=== PATIENT | male | born 1975 | race Caucasian/White ===

== ENCOUNTER 2022-08-19 07:55 | Inpatient (IN) ==
[2022-08-19] MEDS ORDERED: Ondansetron 4 MG/2 ML VIAL IVP ONE (09:06)
[2022-08-19] MEDS ORDERED: Ampicillin/Sulbactam 3,000 MG in 0.9 % Sodium Chloride Mini Bag 100 ML IVPB ONE (09:07)
[2022-08-19] MEDS ORDERED: *HR* FentaNYL (PF) 100 MCG/2 ML VIAL IVP STA (09:07)
[2022-08-19] MEDS ORDERED: 0.9 % Sodium Chloride 1,000 ML IVC ONE (09:16)
[2022-08-19 09:46] LABS: Bilirubin,Urine Negative (Negative); Blood,Urine Negative (Negative); Clarity,Urine Clear (Clear); Color,Urine Yellow (Yellow); Glucose,Urine (UA) Normal (Normal); Ketones,Urine Negative (Negative); Leukocyte Esterase,Urine Negative (Negative); Nitrite,Urine Negative (Negative); PH,Urine 6.5 pH Units (5.0-8.0); Protein,Urine Trace mg/dL (Neg-Trace); Specific Gravity,Urine > 1.030 (1.010-1.025); Urobilinogen,Urine Normal (Normal)
[2022-08-19 09:54] LABS: Albumin 4.2 g/dL (3.5-5.7); Albumin/Globulin Ratio 1.3 (1.1-2.2); Bilirubin,Direct 0.3 mg/dL (0.0-0.2); Bilirubin,Indirect 1.1 mg/dL (0.0-1.0); Bilirubin,Total 1.4 mg/dL (0.3-1.0); Calcium 9.3 mg/dL (8.6-10.3); Globulin 3.3 g/dL (2.4-3.5); Potassium 4.2 mEq/L (3.5-5.1); Total Protein 7.5 g/dL (6.4-8.9)
[2022-08-19 10:19] LABS: Hematocrit 40.8 % (37.5-50.1); Hemoglobin 13.5 g/dL (12.9-16.9); Mean Corpuscular HGB Conc 33.1 g/dL (31.6-35.5); Mean Corpuscular Hemoglobin 29.5 pg (28.0-33.3); Mean Corpuscular Volume 89.3 fL (83.0-100.0); Mean Platelet Volume 10.5 fL (9.4-12.4); Platelet Count 302 K/mcL (140-400); Red Blood Count 4.57 M/mcL (4.19-5.50); Red Cell Distribution Width 13.4 % (11.5-14.5); White Blood Count 15.1 K/mcL (4.3-11.1)
[2022-08-19] MEDS ORDERED: Naloxone 0.4 MG/ML INJ IVP PRN ×2 (10:33→15:16)
[2022-08-19] MEDS ORDERED: Promethazine 6.25 MG in Water for inj. (sterile) 20 ML IVPB PRN (10:35)
[2022-08-19] MEDS ORDERED: Ketorolac 30 MG/ML VIAL IVP PRN ×2 (10:35→15:16)
[2022-08-19] MEDS ORDERED: *HR* HYDROmorphone PF 0.5 MG/0.5 ML SYRINGE IVP PRN (10:35)
[2022-08-19] MEDS ORDERED: Ondansetron 4 MG/2 ML VIAL IVP PRN (10:35)
[2022-08-19] MEDS ORDERED: *HR* OxyCODONE Immed Rel 5 MG TABLET PO PRN ×2 (10:35→15:16)
[2022-08-19] MEDS ORDERED: *HR* Midazolam HCl 2 MG/2 ML VIAL ONE (10:42)
[2022-08-19] MEDS ORDERED: *HR* FentaNYL (PF) 100 MCG/2 ML VIAL ONE (10:42)
[2022-08-19] MEDS ORDERED: *HR* Propofol 200 MG/20 ML VIAL IVP ONE (10:42)
[2022-08-19] MEDS ORDERED: Lidocaine -MPF 2% 2 ML VIAL ONE (10:45)
[2022-08-19] MEDS ORDERED: Lidocaine HCL 4 ML Topical Solution (Laryng-O-Jet Kit Sterile Pak) TP ONE (10:45)
[2022-08-19] MEDS ORDERED: Ringers Solution, Lactated 1,000 ML IVC SCH (10:45)
[2022-08-19] MEDS ORDERED: *HR* Succinylcholine 200 MG/10 ML VIAL IVP ONE (10:45)
[2022-08-19] MEDS ORDERED: *HR* Rocuronium Bromide 50 MG/5 ML VIAL ONE (10:45)
[2022-08-19] MEDS ORDERED: Ondansetron 4 MG/2 ML VIAL ONE (12:31)
[2022-08-19] MEDS ORDERED: Ketorolac 30 MG/ML VIAL ONE (12:33)
[2022-08-19] MEDS ORDERED: Sugammadex Sodium 200 MG/2 ML VIAL IV ONE (12:33)
[2022-08-19] MEDS ORDERED: Acetaminophen IV 1,000 MG/100 ML BAG IVPB ONE (12:39)
[2022-08-19] MEDS ORDERED: Ketamine HCL *QUVA* 50mg (1mL) SYRINGE ONE (12:49)
[2022-08-19] MEDS ORDERED: Acetaminophen IV 500 MG/50 ML BAG IVPB ONE (12:56)
[2022-08-19] MEDS ORDERED: *HR* HYDROMORPHONE 2 MG/ML VIAL ONE ×2 (13:19→14:26)
[2022-08-19] MEDS ORDERED: Ampicillin/Sulbactam 3,000 MG in 0.9 % Sodium Chloride Mini Bag 100 ML IVPB SCH (15:00)
[2022-08-19] MEDS: Ringers Solution, Lactated 1,000 ML IVC SCH (16:26)
[2022-08-19] MEDS: Pantoprazole 40 MG VIAL IVP SCH (16:27)
[2022-08-19] MEDS: Fluconazole 400 MG/200 ML 400 MG/200 ML BAG IVPB SCH (16:27)
[2022-08-19] MEDS: MetroNIDAZOLE 500 MG/100 ML 500 MG/100 ML BAG IVPB SCH ×2 (17:56→23:37)
[2022-08-19] MEDS: *HR* Heparin 5,000 UNIT/ML VIAL SQ SCH (17:59)
[2022-08-19] MEDS: Ampicillin/Sulbactam 3,000 MG in 0.9 % Sodium Chloride Mini Bag 100 ML IVPB SCH (22:08)
[2022-08-20] MEDS: Ringers Solution, Lactated 1,000 ML IVC SCH ×3 (00:53→17:26)
[2022-08-20] MEDS: Ampicillin/Sulbactam 3,000 MG in 0.9 % Sodium Chloride Mini Bag 100 ML IVPB SCH ×4 (03:15→20:41)
[2022-08-20] MEDS: *HR* Heparin 5,000 UNIT/ML VIAL SQ SCH ×2 (06:49→17:34)
[2022-08-20] MEDS: MetroNIDAZOLE 500 MG/100 ML 500 MG/100 ML BAG IVPB SCH ×3 (06:50→17:34)
[2022-08-20] MEDS: Pantoprazole 40 MG VIAL IVP SCH (07:43)
[2022-08-20] MEDS: Morphine PCA 30 MG/ 30 ML 30 ML PCA.VIAL IVC PRN ×3 (08:48→23:24)
[2022-08-20 09:20] LABS: Basophils % 0.1 %; Hematocrit 35.3 % (37.5-50.1); Immature Granulocytes % 0.7 % (0-4); Lymphocytes # 0.9 K/mcL (0.6-4.6); Lymphocytes % 5.5 %; Mean Corpuscular Hemoglobin 29.9 pg (28.0-33.3); Mean Corpuscular Volume 87.8 fL (83.0-100.0); Mean Platelet Volume 10.9 fL (9.4-12.4); Monocytes # 0.8 K/mcL (0.0-1.3); Monocytes % 4.9 %; Neutrophils # 14.6 K/mcL (1.6-8.9); Platelet Count 219 K/mcL (140-400); Red Blood Count 4.02 M/mcL (4.19-5.50); Red Cell Distribution Width 13.6 % (11.5-14.5); Segmented Neutrophils % 88.8 %; White Blood Count 16.4 K/mcL (4.3-11.1)
[2022-08-20 09:24] LABS: BUN/Creatinine Ratio 16 (6-26); Blood Urea Nitrogen 14 mg/dL (6-20); Calcium 8.7 mg/dL (8.6-10.3); Carbon Dioxide 23 mEq/L (23-29); Chloride 106 mEq/L (98-107); Glucose 140 mg/dL (70-105); Osmolality,Calculated 285 (280-300); Potassium 4.6 mEq/L (3.5-5.1); Sodium 136 mEq/L (136-145)
[2022-08-20] MEDS: Fluconazole 400 MG/200 ML 400 MG/200 ML BAG IVPB SCH (15:00)
[2022-08-21] MEDS: MetroNIDAZOLE 500 MG/100 ML 500 MG/100 ML BAG IVPB SCH ×2 (00:17→05:49)
[2022-08-21] MEDS: Melatonin 3 MG TABLET PO PRN ×2 (02:18→21:39)
[2022-08-21] MEDS: Ringers Solution, Lactated 1,000 ML IVC SCH ×3 (02:18→18:14)
[2022-08-21] MEDS: Ampicillin/Sulbactam 3,000 MG in 0.9 % Sodium Chloride Mini Bag 100 ML IVPB SCH (02:18)
[2022-08-21] MEDS: *HR* Heparin 5,000 UNIT/ML VIAL SQ SCH ×2 (05:49→18:14)
[2022-08-21] MEDS: Pantoprazole 40 MG VIAL IVP SCH (09:21)
[2022-08-21] MEDS: Piperacillin/Tazobactam 3.375 GM in 0.9 % Sodium Chloride Mini Bag 100 ML IVPB SCH ×3 (09:47→23:52)
[2022-08-21 11:12] LABS: Basophils % 0.2 %; Mean Platelet Volume 10.4 fL (9.4-12.4); Red Cell Distribution Width 13.8 % (11.5-14.5); White Blood Count 12.1 K/mcL (4.3-11.1)
[2022-08-21 11:14] LABS: Eosinophils # 0.2 K/mcL (0.0-0.6); Eosinophils % 1.8 %; Hematocrit 32.9 % (37.5-50.1); Hemoglobin 11.3 g/dL (12.9-16.9); Immature Granulocytes % 1.6 % (0-4); Immature Platelets 4.2 % (1.1-6.1); Lymphocytes % 7.8 %; Mean Corpuscular HGB Conc 34.3 g/dL (31.6-35.5); Mean Corpuscular Volume 87.3 fL (83.0-100.0); Monocytes # 0.6 K/mcL (0.0-1.3); Monocytes % 5.3 %; Neutrophils # 10.1 K/mcL (1.6-8.9); Nucleated Red Blood Cells 0.3 /100 WBC (0); Platelet Count 202 K/mcL (140-400); Red Blood Count 3.77 M/mcL (4.19-5.50); Segmented Neutrophils % 83.3 %
[2022-08-21 11:15] LABS: Lymphocytes # 0.9 K/mcL (0.6-4.6)
[2022-08-21 11:34] LABS: Alanine Aminotransferase 14 Units/L (7-52); Albumin 3.3 g/dL (3.5-5.7); Albumin/Globulin Ratio 1.1 (1.1-2.2); Alkaline Phosphatase 63 Units/L (34-104); Aspartate Amino Transferase 32 Units/L (13-39); BUN/Creatinine Ratio 26 (6-26); Bilirubin,Total 0.8 mg/dL (0.3-1.0); Blood Urea Nitrogen 22 mg/dL (6-20); Calcium 8.8 mg/dL (8.6-10.3); Carbon Dioxide 25 mEq/L (23-29); Chloride 105 mEq/L (98-107); Globulin 3.1 g/dL (2.4-3.5); Glucose 106 mg/dL (70-105); Osmolality,Calculated 288 (280-300); Potassium 4.9 mEq/L (3.5-5.1); Sodium 137 mEq/L (136-145); Total Protein 6.4 g/dL (6.4-8.9)
[2022-08-21] MEDS: Morphine PCA 30 MG/ 30 ML 30 ML PCA.VIAL IVC PRN (12:59)
[2022-08-21] MEDS: Fluconazole 400 MG/200 ML 400 MG/200 ML BAG IVPB SCH (16:14)
[2022-08-22] MEDS: Morphine PCA 30 MG/ 30 ML 30 ML PCA.VIAL IVC PRN (03:35)
[2022-08-22] MEDS: *HR* Heparin 5,000 UNIT/ML VIAL SQ SCH ×2 (05:47→17:54)
[2022-08-22 05:55] LABS: Immature Granulocytes % 0.3 % (0-4); Red Cell Distribution Width 13.4 % (11.5-14.5)
[2022-08-22 05:57] LABS: Basophils % 0.2 %; Eosinophils # 0.1 K/mcL (0.0-0.6); Eosinophils % 1.3 %; Hematocrit 32.7 % (37.5-50.1); Lymphocytes # 1.1 K/mcL (0.6-4.6); Lymphocytes % 17.4 %; Mean Corpuscular HGB Conc 33.6 g/dL (31.6-35.5); Mean Corpuscular Hemoglobin 29.6 pg (28.0-33.3); Mean Corpuscular Volume 88.1 fL (83.0-100.0); Mean Platelet Volume 10.5 fL (9.4-12.4); Monocytes # 0.5 K/mcL (0.0-1.3); Monocytes % 7.5 %; Neutrophils # 4.6 K/mcL (1.6-8.9); Platelet Count 162 K/mcL (140-400); Red Blood Count 3.71 M/mcL (4.19-5.50); Segmented Neutrophils % 73.3 %; White Blood Count 6.3 K/mcL (4.3-11.1)
[2022-08-22 06:16] LABS: Magnesium 1.6 mg/dL (1.6-2.6)
[2022-08-22 06:31] LABS: Alanine Aminotransferase 14 Units/L (7-52); Albumin 3.3 g/dL (3.5-5.7); Albumin/Globulin Ratio 1.1 (1.1-2.2); Alkaline Phosphatase 57 Units/L (34-104); Aspartate Amino Transferase 24 Units/L (13-39); BUN/Creatinine Ratio 17 (6-26); Bilirubin,Total 0.8 mg/dL (0.3-1.0); Blood Urea Nitrogen 16 mg/dL (6-20); Calcium 8.6 mg/dL (8.6-10.3); Carbon Dioxide 24 mEq/L (23-29); Chloride 103 mEq/L (98-107); Globulin 2.9 g/dL (2.4-3.5); Glucose 97 mg/dL (70-105); Osmolality,Calculated 279 (280-300); Potassium 4.4 mEq/L (3.5-5.1); Sodium 134 mEq/L (136-145); Total Protein 6.2 g/dL (6.4-8.9)
[2022-08-22] MEDS: Ringers Solution, Lactated 1,000 ML IVC SCH ×3 (07:48→13:36)
[2022-08-22] MEDS ORDERED: *HR* OxyCODONE/APAP 5/325 TABLET PO PRN (10:15)
[2022-08-22] MEDS: Piperacillin/Tazobactam 3.375 GM in 0.9 % Sodium Chloride Mini Bag 100 ML IVPB SCH ×2 (10:28→17:55)
[2022-08-22] MEDS ORDERED: Ketorolac 30 MG/ML VIAL IVP SCH (12:00)
[2022-08-22] MEDS: Pantoprazole 40 MG VIAL IVP SCH (12:19)
[2022-08-22] MEDS: Ketorolac 30 MG/ML VIAL IVP SCH ×2 (13:13→17:53)
[2022-08-22] MEDS: Fluconazole 400 MG/200 ML 400 MG/200 ML BAG IVPB SCH (17:54)
[2022-08-22] MEDS: Melatonin 3 MG TABLET PO PRN (21:28)
== END 2022-08-22 23:59 | disposition other institution (70) | DRG 710 ==
LOC: 3ANU 07:55 → EMEROOARM 07:55 → 3ANU 11:29 → SUATTDRO 08-20 08:23
PROVIDERS: ADMIT Internal Medicine; ATTEND Internal Medicine